=== PATIENT | female | born 1995 | race Caucasian/White ===

== ENCOUNTER 2020-03-08 18:24 | Emergency (ER) | payer OTHER, SELFPAY ==
[~2020-03-08] VITALS: Ht 162.6 cm; Wt 86.2 kg
[2020-03-08 18:26] VITALS: Ht 162.6 cm; Wt 86.2 kg
[2020-03-08 19:43] VITALS: BP 126/77
== END 2020-03-08 19:43 | disposition home or self-care (01) ==
LOC: ED 18:24
DX: J02.9 Acute pharyngitis, unspecified (principal); Z20.828 Contact with and (suspected) exposure to other viral communicable diseases
CPT/HCPCS: U0003